=== PATIENT | male | born 1955 ===

== ENCOUNTER 2016-09-23 13:42 | Outpatient (CLI) | payer OTHER ==
--- NOTE | 2016-09-23 17:16 | DIAGNOSTIC IMAGING REPORT ---
PROCEDURE: US SOFT TISSUE THYR/NECK/HEAD INDICATION: MASS OF RT SIDE OF NECK, initial encounter TECHNIQUE: Morel scale and color Doppler sonographic images of the thyroid gland were obtained. COMPARISON: None. FINDINGS: Pulsatile lump corresponds to the superficial distal right common carotid artery bifurcation. No evidence of mass or lymph node. RIGHT LOBE: Measures 5.4 x 1.4 x 1.7 cm. 3 mm cyst in the upper pole. LEFT LOBE: Measures 4.6 x 1.4 x 1.8 cm. 2 mm cyst in the upper pole. ISTHMUS: Measures 0.3 cm. IMPRESSION: 1. Right neck pulsatile mass corresponds to the superficial distal right common carotid artery bifurcation 2. Small bilateral thyroid benign cysts
== END 2016-09-23 23:00 ==
LOC: US SRH 13:42
DX: R22.1 Localized swelling, mass and lump, neck (principal); E04.1 Nontoxic single thyroid nodule

== ENCOUNTER 2016-11-25 14:03 | Outpatient (CLI) | payer OTHER ==
--- NOTE | 2016-11-25 16:11 | DIAGNOSTIC IMAGING REPORT ---
PROCEDURE: XR THORACIC SPINE 3 VIEWS INDICATION: THORACIC SPINE PX TECHNIQUE: Three views. COMPARISON: Chest x-ray 11/22/2015 FINDINGS: There is moderate T12 compression fracture which is unchanged. There is normal alignment. Normal disc spaces. Paraspinal soft tissues are normal. Minor levoconvex curvature. IMPRESSION: 1. Moderate old T12 compression fracture 2. Minor levoscoliosis.
== END 2016-11-25 23:00 ==
LOC: XR SRH 14:03
DX: S22.080S Wedge compression fracture of T11-T12 vertebra, sequela (principal); M41.84 Other forms of scoliosis, thoracic region

== ENCOUNTER 2016-12-01 13:44 | Outpatient (CLI) | payer OTHER ==
--- NOTE | 2016-12-01 16:26 | DIAGNOSTIC IMAGING REPORT ---
PROCEDURE: MR CERVICAL SPINE W/O CONT INDICATION: CERVICAL PAIN, lump in neck, painful swallowing TECHNIQUE: T1, T2, and STIR sagittal sequences. T2 and GRE axial sequences. Bilateral T2 sagittal obliques. COMPARISON: None. FINDINGS: Alignment and curvature: Intact craniocervical junction. Straightening of the normal cervical lordosis. No spondylolisthesis. Vertebral bodies: Mild irregularity, anterior spurring, and degenerative marrow signal at the C5-6 end plates. No osseous edema. Normal vertebral body heights. Disc spaces: Moderate disc height loss at C5-6 and mild disc height loss at the other levels. Spinal canal: The visible posterior fossa structures are normal. The visible cord is normal caliber and signal. No suspicious central canal mass. Paraspinal soft tissues: No suspicious mass in the right lateral anterior neck where a vitamin E capsule celeste area of palpable abnormality. At the tongue base , resting on the anterior surface of the epiglottis, there is a smoothly marginated, T2 hyperintense, T1 hypointense mass measuring 6 x 8 mm. No adjacent soft tissue edema. C2-3: Normal. C3-4: Normal. C4-5: Mild facet hypertrophy. C5-6: Mild circumferential disc osteophyte complex effacing the anterior CSF and slightly flattening the ventral cord. Mild facet arthropathy. Mild left, and moderate right foraminal narrowing. C6-7: Mild disc osteophyte complex and uncovertebral joint hypertrophy. Mild left foraminal narrowing. C7-T1: Normal. IMPRESSION: 1. Moderate left foraminal narrowing at the C5-6 level secondary to moderate disc, endplate, and facet degenerative changes. Correlate clinically. 2. 8 mm cystic structure sits between the tongue base and epiglottis. This may be transient, although is present on every sequence. Direct visualization may be useful. 3. In the right anterior neck, no evidence of soft tissue mass.
== END 2016-12-01 23:00 ==
LOC: MRI SRH 13:44
DX: M50.322 Other cervical disc degeneration at C5-C6 level (principal)